=== PATIENT | female | born 1995 | race Caucasian/White ===

== ENCOUNTER → 2018-08-31 16:52 | Outpatient (CLI) | payer BC, SELFPAY ==
[2018-09-04 08:42] LABS: HPV Reflexed? NOT INDICATED
== END ==
PROVIDERS: Visit Provider Obstetrics & Gynecology
DX: Z12.4 Encounter for screening for malignant neoplasm of cervix (principal)
CPT/HCPCS: 88175; G0145

== ENCOUNTER 2019-09-23 09:38 | Emergency (ER) | payer BC, SELFPAY ==
[2019-09-23 09:40] VITALS: BP 159/75; PULSE 94; RESP 17; TEMP 37.1; O2SAT 97; BMI 47.7
--- NOTE | 2019-09-23 09:56 | ED.VISSUMM ---
- ER Visit Summary Date of Service: 09/23/19 Chief Complaint: [Abdominal pain and dizziness] History of Present Illness: The patient is a 24 F [presents to the emergency department with symptoms that started yesterday. Patient states that she developed an of upper to mid abdominal discomfort that was ultimately severe. Patient states that she went to work and around 5 PM started feeling dizzy where she felt like things were spinning around and round and felt like she was going to pass out but did not actually pass out. She denied any headache. She denied any prior symptoms. Patient states that she came home and ate a sausage sandwich and then went to bed and slept well throughout the night. Today patient comes in because she states that she just feels kind of spacey. Patient was seen at urgent care and referred to the emergency department. Patient's last menstrual period was in June because she is on the Depakote shot. Patient otherwise has no medical history. She denies recent illness. She denies urinary symptoms.] Denies any vertigo symptoms today. Physical Examination: [HEENT-PERRLA, EOMI. Cranial nerves II through XII grossly intact. TMs clear. Mucous membranes moist. No adenopathy. Cardiovascular-regular rate and rhythm without murmur or ectopy Lungs-clear to auscultation, chest wall stable without crepitus or subcu emphysema Abdomen-normoactive bowel sounds, soft. Patient has tenderness palpation over the right lower quadrant as well as suprapubic region left lower quadrant. There is a mild guarding. There is no rebound, rigidity, or peritoneal signs. Neuro vldf-ggebpv-szyw and heel hameed testing within normal limits, negative Romberg, negative , Fundi benign. [place] maneuver performed was negative for nystagmus and it did not reproduce her symptoms. Extremities-intact ?4, normal range of motion, normal pulses, atraumatic] Test Results: [CBC with differential showed a white count of 12,000, hemoglobin 12, hematocrit for 40. Chemistries unremarkable. LFTs unremarkable. hCG was negative. Urinalysis was unremarkable. CT scan of the abdomen pelvis without contrast showed a normal appendix. Nothing else acute.] Static vital signs were negative. Emergency Department Course and Treatment: [Was given a liter normal same fluid bolus.] After fluids patient feels significantly improved. She denies any dizziness currently. Her pain persists to the lower abdomen and right lower quadrant however it is relatively mild and she does not anything for pain. Treatment Plan: [Follow-up with primary care physician 3 to 5 days. Patient advised return if worsening pain, fever, vomiting, or condition should worsen anyway.] Disposition: Discharged home in stable condition] Impression: [Abdominal pain-etiology uncertain Dizziness-resolved] This note was generated with [employer] dictation software. It may contain incorrect words, spelling, and punctuation that were not noted in review of the chart prior to signing ED Disposition - Plan for ED Patient: Referrals: Sheyla Mir PA [Primary Care Provider] -
[2019-09-23] MEDS: 0.9% Normal Saline 1,000 ML 1000 ML IV (10:20)
[2019-09-23 10:30] LABS: Internal QC Validated? YES +Cl - CLEAR BKGD; Pregnancy, Serum, hCG Quali. NEGATIVE Negative
[2019-09-23 10:36] LABS: Absolute Lymphocyte Count 3.21 X10^3/uL (0.83-4.51); Absolute Neutrophil Count 7.9 X10^3/uL (2.0-7.7); Basophil# 0.08 X10^3/uL; Basophil% 0.7 % (0-1); Eosinophil# 0.21 X10^3/uL; Eosinophils% 1.7 % (0-5); Hematocrit 38.5 % (37-47); Hemoglobin 11.6 g/dL (12.0-15.0); Lymphocyte # 3.21 X10^3/ul (4.0); Lymphocyte % 26.7 % (19-41); Mean Corp Hgb Conc 30.1 g/dL (32-36); Mean Corpuscular Hgb 25.1 pg (27.0-32.0); Mean Corpuscular Volume 83.2 fL (81-99); Mean Platelet Vol. 9.2 fl (6.2-12.0); NRBC Flagged by Analyzer 0 % (0-5); Neutrophil # 7.87 X10^3/uL (2.7-7.7); Neutrophil % 65.6 % (47-70); Platelet Count 440 K/mm3 (150-450); RBC Distribution Width CV 15.8 % (11.6-14.6); RBC Distribution Width SD 47.7 fl (35.1-43.9); Red Blood Count 4.63 M/mm3 (4.2-5.4)
[2019-09-23 10:37] LABS: ALB/GLOB Ratio 0.8 RATIO (0.9-2.4); AST(SGOT) 15 U/L (15-37); Alanine Aminotransfer ALT/SGPT 34 U/L (13-56); Albumin, Serum 3.6 g/dL (3.2-5.0); Alkaline Phosphatase 46 U/L (45-117); Anion Gap 8 (5-15); BUN 9 mg/dL (7-18); BUN/Creat Ratio 11.6 RATIO (10-20); Calcium,Total 9.8 mg/dL (8.5-10.1); Chloride 109 mmol/L (98-107); Creatinine, Serum 0.77 mg/dL (0.55-1.02); EST Glomerular Filtration Rate 98 mL/min (>60); Est Glom Filt Rate - Afr Amer 119 mL/min (>60); Estimated Creatinine Clearance 98.12 ml/min; Globulin 4.4 g/dL (2.2-4.2); Glucose 103 mg/dL (74-106); Sodium Level 142 mmol/L (136-145)
[2019-09-23 10:38] LABS: Mucous, Urine 0 SEEN /hpf (<or=2+); Red Blood Cells-Urine 0 SEEN /hpf (0-5); Squamous Epithelial Cells - UA 0 SEEN /hpf (5-10)
[2019-09-23 10:47] VITALS: BP 135/63; BP 139/76; BP 149/93; PULSE 70; PULSE 82; PULSE 84
[2019-09-23 10:47] LABS: Color, Urine Yellow (Yellow); Glucose, Dipstick Normal (Normal); Ketone-Dipstick Negative (Negative); Leukocyte Esterase-Dipstick 25 /ul (Negative); Nitrite-Dipstick Negative (Negative); Occult Blood-Urine Negative /ul (Negative); Protein-Dipstick Negative (Negative); Specific Gravity, Urine 1.015 (1.002-1.030); Urine Bilirubin Dipstick Negative (Negative); Urine Clarity Clear (Clear); Urine Urobilinogen Normal (Normal)
[2019-09-23 10:54] LABS: White Blood Cells 0-5 SEEN /hpf (0-5)
[2019-09-23 10:55] LABS: Bacteria 1+ /hpf (None Seen)
--- NOTE | 2019-09-23 11:06 | CT_ITS ---
STUDY: CT ABDOMEN AND PELVIS WITHOUT CONTRAST REASON FOR EXAM: Female, 24 years old. RLQ PAIN RADIATION DOSAGE (If Supplied By Facility): CTDIvol = ( 32.60 ) mGy, DLP = ( 1620.94 ) mGycm TECHNIQUE: Transaxial images were obtained from the dome of the diaphragm to the symphysis pubis without oral contrast, and without intravenous contrast. Sagittal and coronal images were reconstructed. Individualized dose optimization techniques were used for this CT. COMPARISON: None. FINDINGS: The visualized lung bases are unremarkable. The visualized portions of the heart are within normal limits. Normal liver. Normal gallbladder and extrahepatic biliary system. Normal spleen. Normal pancreas. Normal bilateral adrenal glands. Normal right kidney. Normal left kidney. Normal visualized stomach. Normal small intestine. Normal colon. The appendix is visualized and appears normal. Normal abdominal aorta. Normal inferior vena cava. Normal retroperitoneum. Normal urinary bladder. Normal abdominal wall. There are diffuse degenerative changes of the visualized lumbar spine. CT/Abdomen/Pelvis without Cont IMPRESSION: The appendix is visualized and appears normal. Electronically Signed: Josh Nascimento MD at 11:40 EST Tel , Service support ,
--- NOTE | 2019-09-23 11:44 | ED.DEP ---
ED Disposition - Plan for ED Patient: Instructions: ABDOMINAL PAIN, Unknown Cause, (Female) Referrals: Sheyla Mir PA [Primary Care Provider] - 3-5 Days
[2019-09-23 11:57] VITALS: BP 108/74; PULSE 68; RESP 15; O2SAT 97
== END 2019-09-23 11:59 | disposition home or self-care (01) ==
LOC: ED 10:07
PROVIDERS: Emergency Provider Emergency Medicine; Family Provider Physician Assistant; PCP Physician Assistant
DX: R10.31 Right lower quadrant pain (principal); R10.32 Left lower quadrant pain; R42 Dizziness and giddiness
CPT/HCPCS: 74176; 80053; 81001; 84703; 85025; 96360; 99285; J7030; A4216

== ENCOUNTER 2020-12-26 10:41 | Outpatient (RCR) | payer BC, SELFPAY | END 2021-02-18 23:59 | LOC: IMMUN 10:41 | PROVIDERS: Visit Provider Family Medicine | DX: Z23 Encounter for immunization (principal) | CPT/HCPCS: 0001A; 0002A; 91300 ==

== ENCOUNTER 2023-06-25 05:56 | Emergency (ER) | payer BC, SELFPAY ==
[2023-06-25 05:58] VITALS: BP 150/82; PULSE 97; RESP 18; TEMP 36.8; O2SAT 98; BMI 47.5
--- NOTE | 2023-06-25 06:19 | EDS_ITS ---
HPI History of Present Illness Chief Complaint: Rash Informant: patient Narrative Narrative: Painful red rash on the patient's palms of both hands that started yesterday. No obvious etiology of this such as a topical exposure. She has never had this before and concerned about the etiology. She works at a [employer], so she is around a lot of sick contacts but no one that she knows of with the same thing. She takes no prescriptions except for supplemental iron for anemia. She denies any other systemic symptoms recently or sores in her mouth that she knows of, nor anywhere else. [facility] Medical History (Updated 06/25/23 @ 06:[address] Keith Palmer MD) Iron deficiency anemia Medical History no medical history Home Medications ferrous sulfate 325 mg (65 mg iron) tablet (Feosol) 325 mg PO QODAY 06/25/23 [History Last Taken Unknown] Allergy/AdvReac Type Severity Reaction Status Date / Time Penicillins [cillins] Allergy Anaphylaxis Verified 06/25/23 05:57 cephalexin monohydrate AdvReac Hives Verified 06/25/23 05:57 [From Keflex] pseudoephedrine HCl AdvReac Hives Verified 06/25/23 05:57 [From Sudafed] Social History Smoking Status: Never smoker ROS ROS ED Constitutional Constitutional ED: Reports chills; Denies fever(s) Eyes Eyes: Denies change in vision or diplopia ENT ENT ED: Reports other Details: No changes in hearing or tinnitus ; Denies rhinorrhea or sore throat Cardiovascular Cardiovascular: Denies chest pain or palpitations Respiratory/Chest Respiratory/Chest: Denies cough or dyspnea Gastrointestinal Gastrointestinal: Denies abdominal pain, diarrhea, nausea or vomiting Genitourinary Genitourinary ED: Denies dysuria or hematuria Musculoskeletal Musculoskeletal: Reports extremity pain; Denies back pain or neck pain Integumentary Reports rash; Denies abscess Neurologic Neurologic: Denies headache(s), paresthesias or weakness Psychiatric Psychiatric: Denies anxiety or suicidal thoughts EXAM Physical Exam Const Vital Signs: 06/25/23 05:58 Temperature 98.3 F Temperature Source Temporal Pulse Rate 97 Respiratory Rate 18 Blood Pressure 150/82 H Blood Pressure Mean 104 Pulse Ox 98 Oxygen Delivery Method Room Air Positive well nourished, well developed and obese General Appearance ED: well developed and NAD Nutritional Appearance: obese HEENT Reports moist mucous membranes HEENT Narrative: Posterior pharynx unremarkable. No palatal or tongue or lip lesions, but there are perioral lesions and others scattered on the face, they are nontender, erythematous, some are macular, others are almost pustular, but nothing that josselyn ears able to be ruptured, and they are not tender. No bullae or petechiae. normocephalic and atraumatic Eyes PERRL and EOMs intact bilaterally Neck full ROM, no lymphadenopathy and supple Resp normal respiratory effort and clear to auscultation bilaterally Cardio regular rate, regular rhythm and no murmurs GI non-tender and non-distended Auscultation: normoactive bowel sounds Palpation: soft Back/Spine no CVA tenderness General Back: other FROM Extremity Extremity Narrative: Palms bilaterally and fairly symmetrically are covered in macular erythematous tender nonraised rash. A couple of them almost look like small blisters. No large bullae. A few in between the fingers, but rare lesion dorsally on the hand. On the feet, there are lesions on the plantar aspects of both feet that are nontender, and dorsally there are none. On the extremities there are no other areas of rash and the exam is otherwise benign with full range of motion throughout no edema or lymphangitis or open wounds. General Extremety ED: Yes tenderness; Negative for edema or pulses abnormal General Extremity: Negative for edema or pulses abnormal Neuro oriented x3, CN's II-XII intact bilaterally and no sensory deficits noted Sensorium / Orientation: awake and alert Motor Exam: strength 5/5 throughout Psych Mood & Affect: anxious and tearful Skin no wounds Skin Narrative: See extremity and HEENT exam for rash details. MDM MDM MDM Narrative Medical decision making narrative: Patient has a benign exam are set for this rash, which is most prominent on the hands/palms, but also present on the soles and her face perioral area especially. Given this my suspicion is that it is hand foot and mouth disease. However secondary syphilis is also in the differential diagnosis. I questioned her about sexual activity, she states she has not been sexually active for about a year and has never had any STDs that she knows of. She has not been in a pool or hot tub recently. We discussed painless chancre that is often present in primary syphilis and often goes undetected, she does not recall ever having a genital chancre. As I discussed with her, secondary syphilis would be the only concerning diagnoses that I can think of at the current time, if it is viral that should simply go away on its own and be annoying in the meantime. She is amenable to obtaining a blood test for syphilis antibodies in order to rule that out. She does not have a doctor so I referred her to the next doctor on the unassigned list Dr. Park, and advised that she make an appointment to follow- up when she is able. Given a work note since this is very contagious if it is indeed phuo-soyz-xgi-mouth. Discharge Plan Triage Chief Complaint: Rash ED Provider: Keith Palmer Dx/Rx/DC Orders Clinical Impression: Hand, foot and mouth disease Instructions: Hand Foot Mouth Disease Ch Prescriptions: No Action ferrous sulfate [Feosol] 325 mg (65 mg iron) tablet 325 mg PO QODAY Stand Alone Forms: ED Work / School Excuse Primary Care Provider: Care Physician,No Primary Referrals: Modesta Park MD [Med Staff - General Operations Manager] - (call for follow up appt) Disposition Disposition: Home, Self Care
[2023-06-25 06:32] VITALS: PULSE 85; RESP 16; O2SAT 98
[2023-06-25 07:53] LABS: Syphilis Antibodies Non-reactive
== END 2023-06-25 06:32 | disposition home or self-care (01) ==
LOC: ED 06:26
PROVIDERS: Emergency Provider Emergency Medicine; Visit Provider Emergency Medicine
DX: B08.4 Enteroviral vesicular stomatitis with exanthem (principal); D50.9 Iron deficiency anemia, unspecified; E66.9 Obesity, unspecified
CPT/HCPCS: 86780; 99282